=== PATIENT | male | born 1950 | race African-American/Black ===

== ENCOUNTER 2018-08-01 19:16 | Inpatient (IN) | payer MEDICARE, MEDICAID ==
[2018-08-01 19:39] VITALS: BMI 38.7
[2018-08-01] MEDS ORDERED: Acetaminophen 650 MG Suppository PR PRN (20:12)
[2018-08-01] MEDS ORDERED: Ondansetron ODT 4 MG TAB PO PRN (20:12)
[2018-08-01] MEDS ORDERED: Ondansetron PF 4 MG/2 ML Vial IVP PRN (20:12)
[2018-08-01] MEDS ORDERED: Guaifenesin DM 100-10/5 ML UDCUP PO PRN (20:12)
[2018-08-01] MEDS ORDERED: Senokot S 8.6-50 MG TAB PO PRN (20:12)
[2018-08-01] MEDS ORDERED: Dextrose 50% Abboject 50 ML SYRINGE SLOW IVP PRN (20:16)
[2018-08-01] MEDS ORDERED: Dextrose 5% in Water 1,000 ML IV PRN (20:16)
[2018-08-01] MEDS ORDERED: HumaLOG 300 UNITS/3 ML VIAL SC PRN (20:16)
[2018-08-01] MEDS ORDERED: Diltiazem 125 MG in Sodium Chloride 0.9% 100 ML IVPB SCH (20:30)
[2018-08-01] MEDS ORDERED: Enoxaparin Sodium 100 MG/ML SYRINGE SC SCH (21:00)
[2018-08-01 21:14] LABS: CKMB 3.5 ng/mL (0-6.6)
[2018-08-01] MEDS: Insulin Glargine 60 UNITS in Pre-Filled Syringe 1 EACH SC SCH (21:24)
[2018-08-01] MEDS: Famotidine 20 MG TAB PO SCH (21:25)
[2018-08-01] MEDS: Atorvastatin Calcium 40 MG TAB PO SCH (21:25)
[2018-08-01] MEDS: Gabapentin 300 MG CAP PO SCH (21:25)
[2018-08-01] MEDS: Acetaminophen 325 MG TAB PO PRN (21:25)
[2018-08-01] MEDS ORDERED: hydrALAZINE 20 MG/ML VIAL SLOW IVP SCH (23:30)
[2018-08-01] MEDS ORDERED: Ketorolac Tromethamine 30 MG/ML VIAL IVP SCH (23:30)
[2018-08-01] MEDS: hydrALAZINE 20 MG/ML VIAL SLOW IVP PRN (23:56)
--- NOTE | 2018-08-02 02:08 | HP ---
PRIMARY CARE PHYSICIAN: At [place]. CHIEF COMPLAINT: Palpitations and shortness of breath. HISTORY OF PRESENT ILLNESS: This is a 67-year-old male who lives in [place], has a history of congestive heart failure and he had paroxysmal atrial fibrillation over the last year. Most recently, went into atrial fibrillation after when he had a colonoscopy done in March of last year and was in the hospital for several days, discharged on Coumadin, but stopped that because it made him feel sick. No blood thinner since then, He is not on any sort of antiarrhythmics. He came to [facility] to visit his ex- and his daughters and he was eating a large hamburger and suddenly felt palpitations and shortness of breath. He denied any chest pain. He does think he may have had an increase in his fluid retention over the last few days as well. The patient went to the [facility] Room. There, he was found to be hypoxic, 86% on room air, and to be in atrial fibrillation with rapid ventricular rate. The patient was given nebs and Lasix. Also his brain natriuretic peptide was elevated and then he was transferred here. He is breathing much better now and saturating well on room air. He apparently had some wheezing, but that has now resolved. PAST MEDICAL HISTORY: 1. Congestive heart failure for the last 10 years, unknown type. 2. Previous heart attack and coronary artery disease. No history of stents or bypass surgery. 3. Diabetes mellitus type 2, insulin dependent, complicated by peripheral neuropathy. 4. Hyperlipidemia. 5. Hypertension. 6. Multiple previous strokes and TIAs without any residual deficits. PAST SURGICAL HISTORY: None. SOCIAL HISTORY: The patient smokes a pack per day for the last 44 years. He drinks half a pint of vodka, he states about 3 days per week and one of his daughters thought it was more than that. No illicit drugs. FAMILY HISTORY: Multiple family members with hypertension, diabetes, heart problems, and strokes. ALLERGIES: NO KNOWN DRUG ALLERGIES, THOUGH COUMADIN MAKES HIM FEEL SICK. CURRENT MEDICATIONS: 1. Amlodipine 10 mg daily. 2. Atorvastatin 40 mg daily. 3. Carvedilol 25 mg twice daily. 4. Cetirizine 5 mg daily. 5. Clopidogrel 75 mg daily. 6. Nexium 40 mg daily. 7. Gabapentin 600 mg twice daily. 8. Meclizine as needed. 9. Metformin 500 mg twice daily. 10. Naproxen as needed. 11. Possibly Lasix, he is uncertain, if it is 40 mg or 20 mg daily, though it was not on his home medicine list that he gave to the emergency room. REVIEW OF SYSTEMS: CONSTITUTIONAL: No fevers, no chills. EYES: No double vision or blurred vision. ENT: He has had a little bit of runny nose. No sore throat. CARDIOVASCULAR: See HPI. No chest pain. PULMONARY: See HPI. No previous coughing or congestion. No chest tightness or wheezing currently. GASTROINTESTINAL: No abdominal pain. He gets nauseated occasionally, but none today. No vomiting, no diarrhea or constipation. GENITOURINARY: No dysuria or hematuria. MUSCULOSKELETAL: The patient has chronic low back pain with pains down into his legs. He is supposed to be getting an MRI to work up his low back issues. SKIN: He has a rash on his lower part of the abdomen that came from pressure. It was given while he was getting his colonoscopy and he had a lot of bruising there apparently. Initially it has only recently started to heal up well. NEUROLOGIC: The patient has bilateral tingling in feet and lower legs from his peripheral neuropathy. No other numbness, tingling, or focal weakness. PHYSICAL EXAMINATION: VITAL SIGNS: Still pending since his arrival to the hospital here at the outside emergency room. He was noted to have elevated blood pressure. Most recent one was 210/103, respirations 16, O2 saturation was 98% on O2 there and his pulse rate was in the low 100 to 120s. It eventually went into the 90s when he converted back to normal sinus rhythm. He did keep bumping back between normal sinus rhythm and atrial fibrillation with RVR while he was in the hospital there. When he got here, he was put on the monitor and was apparently in sinus rhythm initially, but then he went into atrial flutter with rapid ventricular rate into the 120s here. PHYSICAL EXAMINATION: GENERAL: This is a well-developed, obese, male in no acute distress. HEENT: Pupils equal, round, and reactive to light. Oropharynx clear without lesions, erythema, or exudate. NECK: Supple. No lymphadenopathy. No thyroid nodules or enlargement. No JVD. HEART: Irregularly irregular rhythm in the low 100s on my exam. Now it is fluctuating quite a lot. No murmurs. LUNGS: Clear to auscultation bilaterally. No wheezes, crackles, or rhonchi. ABDOMEN: Soft, obese, nontender to palpation. Normoactive bowel sounds. No hepatosplenomegaly or other masses. EXTREMITIES: The patient has 1+ pitting edema in bilateral lower extremities. He states this is chronic. No clubbing or cyanosis. SKIN: The patient has a darkened desquamated area on the inferior edge of his pannus that he says is a healing rash from his colonoscopy. No other skin lesions noted. NEUROLOGIC: Intact strength and sensation in all extremities. No facial droop. PSYCHIATRIC: Alert, oriented x3. Normal mood and affect. LABORATORY DATA: From the emergency room shows brain natriuretic peptide in the 400s. White blood cell count 9.6, hemoglobin 13.9, hematocrit 41.5, platelet count 78. Cardiac profile with negative troponin, brain natriuretic peptide elevated at 471. PT/INR normal. D-dimer minimally elevated. Complete metabolic panel notable for a sodium of 147, glucose of 256, creatinine of 1.4. The rest was normal. EKG from the [facility] did show initial atrial fibrillation with RVR in the 120s to 130s that converted to sinus rhythm without any severe ST changes. ASSESSMENT: 1. Paroxysmal atrial fibrillation, going in and out of atrial fibrillation, symptomatic, currently in atrial fibrillation. We will give patient a diltiazem bolus and then start him on a diltiazem drip. We will monitor him on telemetry monitoring. We will get Cardiology to see him in the morning. 2. Congestive heart failure exacerbation. We will start the patient on Lasix 40 mg IV twice daily. 3. Renal failure, uncertain if it is acute or chronic. We will monitor creatinine closely with institution of Lasix. 4. Acute hypoxic respiratory failure, now resolved after a nebulizer at the outside emergency room. We will monitor closely and give oxygen as needed and give nebulizers as needed as well. 5. Hypertension. We will resume patient's home blood pressure medications. 6. Hyperlipidemia. We will resume patient's statin. 7. Diabetes mellitus type 2, insulin dependent. We will resume patient's Lantus and put him on a controlled carbohydrate diet and an insulin sliding scale. 8. Gastrointestinal prophylaxis. We will put patient on Pepcid twice daily. 9. Deep venous thrombosis prophylaxis. We will put the patient on Lovenox and sequential compression devices while in bed. CODE STATUS: I did discuss this with the patient. He is a full code. Should he be incapacitated, he states that his daughter would be his medical decision maker, her name is Stephenie Herrera. Job ID: [id number]
[2018-08-02] MEDS: hydrALAZINE 20 MG/ML VIAL SLOW IVP PRN (04:11)
[2018-08-02 05:42] LABS: Anion Gap 15 mmol/L (10-20); BUN (Urea Nitrogen) 20 mg/dL (8.4-25.7); Calc. Creatinine Clearance 58 mL/min (70-130); Calcium 9.1 mg/dL (7.8-10.44); Carbon Dioxide 23 mmol/L (23-31); Chloride 108 mmol/L (98-107); Estimated GFR-MDRD 46; Glucose 228 mg/dL (80-115); Potassium 3.9 mmol/L (3.5-5.1); Sodium 142 mmol/L (136-145)
[2018-08-02 05:44] LABS: #Eosinphils 0.2 thou/uL (0.0-0.7); #Lymphocytes 1.2 thou/uL (1.20-3.40); #Monocytes 0.6 thou/uL (0.11-0.59); %Basophils 0.8 % (0.0-1.0); %Eosinophils 2.8 % (0.0-10.0); %Lymphocytes 20.5 % (21.0-51.0); %Monocytes 10.4 % (0.0-10.0); %Neutrophils 65.5 % (42.0-75.0); Hemoglobin 12.2 g/dL (14.0-18.0); Mean Corpuscular HGB CONC 32.6 g/dL (32.0-36.0); Mean Corpuscular Hemoglobin 26.8 pg (27.0-31.0); Mean Corpuscular Volume 82.3 fL (78.0-98.0); Mean Platelet Volume 11.2 fL (7.4-10.4); Platelet Count 71 thou/uL (130-400); RBC Distribution Width 16.8 % (11.5-14.5); Red Blood Cell (RBC) Count 4.55 mill/uL (4.70-6.10); White Blood Cell (WBC) Count 6.1 thou/uL (4.8-10.8)
[2018-08-02 05:45] LABS: MDiff Complete? YES; Platelet Morphology Comment Appears Decreased
[2018-08-02] MEDS: Furosemide 40 MG/4 ML VIAL SLOW IVP SCH ×2 (06:11→13:47)
[2018-08-02 07:30] LABS: Hemoglobin A1c 6.8 % (4.0-6.0)
[2018-08-02 07:42] LABS: ALT (SGPT) 14 U/L (8-55); AST (SGOT) 24 U/L (5-34); Albumin 3.2 g/dL (3.4-4.8); Alkaline Phosphatase 50 U/L (40-150); Bilirubin, Direct 0.1 mg/dL (0.1-0.3); Bilirubin, Total 0.4 mg/dL (0.2-1.2); Magnesium 1.9 mg/dL (1.6-2.6); Protein, Total 6.5 g/dL (5.8-8.1); Uric Acid 6.1 mg/dL (3.5-7.2)
[2018-08-02] MEDS: Carvedilol 25 MG TAB PO SCH ×2 (07:43→16:35)
[2018-08-02 08:03] LABS: CKMB 2.9 ng/mL (0-6.6)
[2018-08-02] MEDS ORDERED: Enoxaparin Sodium 40 MG/0.4 ML SYRINGE SC SCH (09:00)
[2018-08-02] MEDS ORDERED: Apixaban 5 MG TAB PO SCH (09:00)
--- NOTE | 2018-08-02 09:24 | CON ---
DATE OF CONSULTATION: 08/02/2018 REASON FOR CONSULTATION: Heart failure and atrial fibrillation. HISTORY OF PRESENT ILLNESS: Mr. Herrera is a pleasant 67-year-old gentleman, who comes to the hospital for shortness of breath. He was having hamburger and felt sudden onset of shortness of breath. He was taken to a local ER. He was found to be hypoxic with oxygen level of 86%. So, he was transferred over here for further evaluation. He was also found to be in AFib with RVR. He does have a history of heart failure, apparently he had a heart attack about 10 years ago. However, when I asked him if they ever did a heart catheterization, he tells me that they did at that time and they did not find any blocked arteries. He did not need any stents. He did not need any bypasses. He has been battling with paroxysmal atrial fibrillation for many years. He has had several TIAs. He has been on Coumadin in the past as well, but did not react well to it, had side effects, had to be taken off, and has only been on Plavix. Currently, he is feeling much better, he has been diuresed, he was started on diltiazem drip, but still having some trouble with rate control. PAST MEDICAL HISTORY: 1. History of episodes of congestive heart failure, unknown if it is diastolic or systolic. 2. History of myocardial infarctions. However, it sounds to me like where he has nonischemic cardiomyopathy or may be just hypertensive cardiomyopathy. This is still awaiting echo results. 3. Type 2 diabetes. 4. Hyperlipidemia. 5. Hypertension. 6. Multiple strokes and TIAs in the past. PAST SURGICAL HISTORY: Left heart cath in the past as well. SOCIAL HISTORY: Smokes a pack a day for 44 years. Drinks a pint of vodka 3 days per week, according to his daughters, it is more than that. No drug use. FAMILY HISTORY: Multiple family members with early coronary artery disease. ALLERGIES: 1. NO KNOWN DRUG ALLERGIES. 2. COUMADIN MADE HIM FEEL SICK. OUTPATIENT MEDICATIONS: Include: 1. Amlodipine 10 mg a day. 2. Atorvastatin 40 mg a day. 3. Carvedilol 25 mg twice a day. 4. Cetirizine. 5. Clopidogrel 75 mg a day. 6. Nexium 40 mg a day. 7. Gabapentin 600 mg twice a day. 8. Meclizine. 9. Metformin 500 mg twice a day. 10. Naproxen p.r.n. 11. Lasix. REVIEW OF SYSTEMS: A 12-point review of systems was done and was found to be negative unless stated in the history of present illness. PHYSICAL EXAMINATION: VITAL SIGNS: Temperature 98.4, pulse 91, respiratory rate 16, saturating 98% on 2 L, blood pressure has been in the 200s/100 range, down to 185/98. GENERAL: Awake, alert, and oriented x3. In no distress. HEENT: Normocephalic atraumatic. NECK: Supple. LUNGS: Clear. CARDIOVASCULAR: S1 and S2. No S3, S4. Irregularly irregular heart rate in the 90s to 100s. ABDOMEN: Soft. Positive bowel sounds. EXTREMITIES: 1+ edema. SKIN: Warm and dry. LABORATORY DATA: Laboratory work was reviewed. White count of 6, hemoglobin of 12, hematocrit of 37, and platelet count of 71. Chemistry with a creatinine of 1.8, GFR of 46, glucose of 228. Hemoglobin A1c is 6.8. BNP was 486. Albumin of 3.2. TSH was normal. Troponin was 0.06 and 0.08. ASSESSMENT AND PLAN: 1. Acute on chronic decompensated heart failure, unclear if this is systolic or diastolic. 2. Hypertension, malignant. 3. Most likely flash pulmonary edema from diastolic dysfunction. 4. Atrial fibrillation with rapid ventricular response. 5. History of transient ischemic attack, strokes, with CHADS-VASc score of 5. PLAN: 1. We will increase his diltiazem drip to try to rate control him a little bit better. He has been going in and out of sinus, actually at the beginning of this dictation, he was in atrial fibrillation in the 110s. At this point, he is back in sinus in the 80s. 2. We will start him on full anticoagulation. He is already on Lovenox subcu b.i.d. We will start him on Eliquis 5 mg b.i.d. We will see if his insurance is able to afford this. 3. Echocardiogram pending. 4. We will try to get his blood pressure better controlled. We will restart all of his medications. I will switch his amlodipine to diltiazem 120 mg a day and up titrate as blood pressure and heart rate allow. Thank you for letting me to participate in the care of your patient. We will follow. Further recommendations per results of echo. Job ID: [id number]
[2018-08-02 09:30] LABS: Bilirubin Negative (Negative); Blood, Urine Trace (Negative); Clarity CLEAR (Clear); Glucose, Urine (Dipstick) 100 mg/dL (Negative); Leukocyte Negative (Negative); Nitrite Negative (Negative); Protein, Urine (Dipstick) 100 mg/dL (Neg-Trace); Specific Gravity, Urine 1.006 (1.002-1.036); Urobilinogen 0.2 mg/dL (0.2-1.0); pH, Urine 7.5 (5.0-9.0)
[2018-08-02 09:33] LABS: Bacteria/HPF None Seen HPF (None Seen); Hyaline Casts/LPF 0-3 HYALINE CAST LPF (0-3 Hyaline); RBC/HPF 0-3 HPF (0-3); Squamous Epithelial None Seen HPF (0-3); WBC/HPF None Seen HPF (0-3)
[2018-08-02 09:40] LABS: Amphetamine Not Detected (NotDetected); Barbiturates Screen Not Detected (NotDetected); Benzodiazepine Screen Not Detected (NotDetected); Cocaine Metabolite Screen Not Detected (NotDetected); Medtox Control Line Valid? VALID (VALID); Medtox Reader # READER 1; Methadone Not Detected (NotDetected); Methamphetamine Not Detected (NotDetected); Opiate Screen Not Detected (NotDetected); Oxycodone Screen Not Detected (NotDetected); Phencyclidine (PCP) Not Detected (NotDetected); THC/Cannabinoid Screen Not Detected (NotDetected); Tricyclic Screen Not Detected (NotDetected)
[2018-08-02] MEDS: Gabapentin 300 MG CAP PO SCH ×2 (09:47→20:44)
[2018-08-02] MEDS: Clopidogrel Bisulfate 75 MG TAB PO SCH (09:48)
[2018-08-02] MEDS: Famotidine 20 MG TAB PO SCH ×2 (09:51→20:45)
--- NOTE | 2018-08-02 10:00 | PDOC.PN ---
- Subjective Encounter Start Date: 08/02/18 Encounter Start Time: 07:00 Patient seen and examined. No new complaints. No overnight events - Objective Resuscitation Status - Order Detail: 08/01/18 20:12 Resuscitation Status Routine Resuscitation Status: FULL: Full Resuscitation Discussed with: Patient KRUPA Reviewed: Yes Vital Signs & Weight: Vital Signs (12 hours) Temp Pulse Resp BP BP BP Pulse Ox 08/02/18 09:45 89 161/89 H 08/02/18 08:00 98 08/02/18 07:13 98.4 F 91 16 185/98 H 209/115 H 98 08/02/18 06:10 80 175/88 H 08/02/18 04:11 79 205/101 H 08/02/18 04:02 97.7 F 79 18 205/101 H 97 08/01/18 23:56 78 204/96 H 08/01/18 23:54 78 204/96 H 08/01/18 23:24 97.7 F 73 18 204/88 H 97 Weight Weight 225 lb 12.8 oz I&O: 08/01/18 08/02/18 08/03/18 06:59 06:59 06:59 Intake Total 260 Output Total 625 Balance -365 Result Diagrams: 08/02/18 04:57 08/02/18 04:57 Additional Labs: Accuchecks 08/01/18 20:40 POC Glucose 317 H Radiology Reviewed by me: Yes (chest xray reviewed) EKG Reviewed by me: Yes (nsr) Phys Exam - Physical Examination Constitutional: NAD HEENT: PERRLA, moist MMs, sclera anicteric Neck: no JVD, supple Respiratory: no wheezing, no rales, no rhonchi Cardiovascular: RRR, no significant murmur, no rub Gastrointestinal: soft, non-tender, no distention, positive bowel sounds Musculoskeletal: pulses present, edema present Neurological: non-focal, normal sensation, moves all 4 limbs Lymphatic: no nodes Psychiatric: normal affect, A&O x 3 Skin: no rash, normal turgor Dx/Plan (1) Acute on chronic diastolic ACC/AHA stage C congestive heart failure Code(s): I50.33 - ACUTE ON CHRONIC DIASTOLIC (CONGESTIVE) HEART FAILURE Status : Acute (2) Acute kidney failure Status: Acute (3) Hypertensive urgency Code(s): I16.0 - HYPERTENSIVE URGENCY Status: Acute (4) PAF (paroxysmal atrial fibrillation) Code(s): I48.0 - PAROXYSMAL ATRIAL FIBRILLATION Status: Acute (5) Thrombocytopenia Code(s): D69.6 - THROMBOCYTOPENIA, UNSPECIFIED Status: Acute (6) Diabetes type 2, controlled Code(s): E11.9 - TYPE 2 DIABETES MELLITUS WITHOUT COMPLICATIONS Status: Chronic (7) Dyslipidemia Code(s): E78.5 - HYPERLIPIDEMIA, UNSPECIFIED Status: Chronic (8) GERD (gastroesophageal reflux disease) Code(s): K21.9 - GASTRO-ESOPHAGEAL REFLUX DISEASE WITHOUT ESOPHAGITIS Status: Chronic (9) Hypertension Code(s): I10 - ESSENTIAL (PRIMARY) HYPERTENSION Status: Chronic (10) Obesity (BMI 30-39.9) Code(s): E66.9 - OBESITY, UNSPECIFIED Status: Chronic (11) Tinea corporis Code(s): B35.4 - TINEA CORPORIS Status: Acute - Plan cont current plan of care, plan discussed w/ family * continue diuresis * will need medication adjustment * echo pending * discussed with family bedside * will monitor * pt is improving. * will add clotrimazole cream and add diflucan 100 mg po daily * check bnp, cardiac enzyme, LFT, uric acid, UA, UDS Review of Systems - Review of Systems ENT: negative: Ear Pain, Ear Discharge, Nose Pain, Nose Discharge, Nose Congestion, Mouth Pain, Mouth Swelling, Throat Pain, Throat Swelling, Other Respiratory: negative: Cough, Dry, Shortness of Breath, Hemoptysis, SOB with Excertion, Pleuritic Pain, Sputum, Wheezing Cardiovascular: edema. negative: chest pain, palpitations, orthopnea, paroxysmal nocturnal dyspnea, light headedness, other Gastrointestinal: negative: Nausea, Vomiting, Abdominal Pain, Diarrhea, Constipation, Melena, Hematochezia, Other Genitourinary: negative: Dysuria, Frequency, Incontinence, Hematuria, Retention , Other Musculoskeletal: negative: Neck Pain, Shoulder Pain, Arm Pain, Back Pain, Hand Pain, Leg Pain, Foot Pain, Other Skin: negative: Rash, Lesions, Mauricio, Bruising, Other - Medications/Allergies Allergies/Adverse Reactions: Allergies Allergy/AdvReac Type Severity Reaction Status Date / Time No Known Allergies Allergy Unverified 08/01/18 19:49 Medications: Current Medications Acetaminophen (Tylenol) 650 mg PO Q4H PRN PRN Reason: Headache/Fever/Mild Pain (1-3) Last Admin: 08/01/18 21:25 Dose: 650 mg Apixaban (Eliquis) 5 mg PO BID [facility] Last Admin: 08/02/18 09:47 Dose: 5 mg Atorvastatin Calcium (Lipitor) 40 mg PO HS [facility] Last Admin: 08/01/18 21:25 Dose: 40 mg Carvedilol (Coreg) 25 mg PO BID-[facility] Last Admin: 08/02/18 07:43 Dose: 25 mg Clopidogrel Bisulfate (Plavix) 75 mg PO DAILY [facility] Last Admin: 08/02/18 09:48 Dose: 75 mg Dextrose/Water (Dextrose 50%) 25 gm SLOW IVP PRN PRN PRN Reason: Hypoglycemia Diltiazem HCl (Cardizem Cd) 120 mg PO DAILY [facility] Last Admin: 08/02/18 09:45 Dose: 120 mg Famotidine (Pepcid) 20 mg PO BID [facility] Last Admin: 08/02/18 09:51 Dose: 20 mg Furosemide (Lasix) 40 mg SLOW IVP 0600,1400 [facility] Last Admin: 08/02/18 06:11 Dose: 40 mg Gabapentin (Neurontin) 600 mg PO BID [facility] Last Admin: 08/02/18 09:47 Dose: 600 mg Glucagon (Glucagon) 1 mg IM PRN PRN PRN Reason: Hypoglycemia Guaifenesin/Dextromethorphan (Robitussin Dm) 15 ml PO Q4H PRN PRN Reason: Cough Hydralazine HCl (Apresoline) 10 mg SLOW IVP Q4H PRN PRN Reason: SBP > 180 Last Admin: 08/02/18 04:11 Dose: 10 mg Dextrose/Water (D5w) 1,000 mls @ 0 mls/hr IV .Q0M PRN PRN Reason: Hypoglycemia Diltiazem HCl 125 mg/ Sodium (Chloride) 125 mls @ 5 mls/hr IVPB INF [facility]; Protocol Insulin Glargine 60 units/ (Miscellaneous Medication) 0.6 mls @ 0 mls/hr SC HS [facility] Last Admin: 08/01/18 21:24 Dose: 0.6 mls Insulin Human Lispro (Humalog) 0 units SC .MODERATE SLIDING SC PRN PRN Reason: Moderate Correctional Scale Insulin Human Lispro (Humalog) 0 units SC .BEDTIME SLIDING SC PRN PRN Reason: Bedtime Correctional Scale Ondansetron HCl (Zofran Odt) 4 mg PO Q6H PRN PRN Reason: Nausea/Vomiting Ondansetron HCl (Zofran) 4 mg IVP Q6H PRN PRN Reason: Nausea/Vomiting Senna/Docusate Sodium (Senokot S) 2 tab PO BID PRN PRN Reason: Constipation Sodium Chloride (Flush - Normal Saline) 10 ml IVF Q12HR PAULINE Last Admin: 08/02/18 09:45 Dose: 10 ml Sodium Chloride (Flush - Normal Saline) 10 ml IVF PRN PRN PRN Reason: Saline Flush Last Admin: 08/02/18 06:11 Dose: 10 ml
[2018-08-02] MEDS ORDERED: Fluconazole 100 MG TAB PO SCH (10:15)
[2018-08-02] MEDS: Acetaminophen 325 MG TAB PO PRN ×2 (10:52→20:46)
[2018-08-02] MEDS: HumaLOG 300 UNITS/3 ML VIAL SC PRN ×2 (11:53→17:24)
[2018-08-02] MEDS: Lidocaine 5% Patch TD SCH (20:44)
[2018-08-02] MEDS: Atorvastatin Calcium 40 MG TAB PO SCH (20:45)
[2018-08-02] MEDS: Clotrimazole 1 % Cream 30 GM TUBE TOP SCH (20:46)
[2018-08-02] MEDS: Insulin Glargine 60 UNITS in Pre-Filled Syringe 1 EACH SC SCH (20:47)
[2018-08-03] MEDS: Furosemide 40 MG/4 ML VIAL SLOW IVP SCH ×2 (05:40→13:38)
[2018-08-03] MEDS: Acetaminophen 325 MG TAB PO PRN (05:46)
[2018-08-03] MEDS: Lidocaine Patch Removal TOP SCH (08:15)
[2018-08-03] MEDS: Carvedilol 25 MG TAB PO SCH ×2 (09:06→17:35)
[2018-08-03] MEDS: Fluconazole 100 MG TAB PO SCH (09:06)
[2018-08-03] MEDS: Clopidogrel Bisulfate 75 MG TAB PO SCH (09:07)
[2018-08-03] MEDS: Gabapentin 300 MG CAP PO SCH ×2 (09:07→21:35)
[2018-08-03] MEDS: Famotidine 20 MG TAB PO SCH ×2 (09:07→21:36)
[2018-08-03] MEDS: Clotrimazole 1 % Cream 30 GM TUBE TOP SCH ×2 (09:08→21:38)
--- NOTE | 2018-08-03 10:07 | PDOC.PN ---
- Subjective Encounter Start Date: 08/03/18 Encounter Start Time: 08:50 Patient seen and examined. No new complaints. No overnight events pt is doing well, he has chronic pain in back and is not well controlled, his edema is improving - Objective Resuscitation Status - Order Detail: 08/01/18 20:12 Resuscitation Status Routine Resuscitation Status: FULL: Full Resuscitation Discussed with: Patient KRUPA Reviewed: Yes Vital Signs & Weight: Vital Signs (12 hours) Temp Pulse Resp BP BP BP Pulse Ox 08/03/18 09:06 62 08/03/18 07:25 98 F 62 18 151/71 H 96 08/03/18 04:00 97.8 F 67 15 164/92 H 97 08/02/18 23:02 65 18 165/77 H 96 Weight Weight 226 lb 4.8 oz I&O: 08/02/18 08/03/18 08/04/18 06:59 06:59 06:59 Intake Total 260 1390 Output Total 625 825 Balance -365 565 Result Diagrams: 08/02/18 04:57 08/02/18 04:57 Additional Labs: Accuchecks 08/03/18 08/02/18 08/02/18 05:32 20:19 16:52 POC Glucose 185 H 283 H 236 H 08/02/18 10:58 POC Glucose 302 H Radiology Reviewed by me: Yes (echo noted) EKG Reviewed by me: Yes Phys Exam - Physical Examination Constitutional: NAD HEENT: PERRLA, moist MMs, sclera anicteric Neck: no JVD, supple Respiratory: no wheezing, no rales, no rhonchi Cardiovascular: RRR, no significant murmur, no rub Gastrointestinal: soft, non-tender, no distention, positive bowel sounds obesity+ edema improving Neurological: non-focal, normal sensation, moves all 4 limbs Psychiatric: normal affect, A&O x 3 Skin: no rash, normal turgor Dx/Plan (1) Acute on chronic diastolic ACC/AHA stage C congestive heart failure Code(s): I50.33 - ACUTE ON CHRONIC DIASTOLIC (CONGESTIVE) HEART FAILURE Status : Acute (2) Acute kidney failure Status: Acute (3) Hypertensive urgency Code(s): I16.0 - HYPERTENSIVE URGENCY Status: Acute (4) PAF (paroxysmal atrial fibrillation) Code(s): I48.0 - PAROXYSMAL ATRIAL FIBRILLATION Status: Acute (5) Thrombocytopenia Code(s): D69.6 - THROMBOCYTOPENIA, UNSPECIFIED Status: Acute (6) Diabetes type 2, controlled Code(s): E11.9 - TYPE 2 DIABETES MELLITUS WITHOUT COMPLICATIONS Status: Chronic (7) Dyslipidemia Code(s): E78.5 - HYPERLIPIDEMIA, UNSPECIFIED Status: Chronic (8) GERD (gastroesophageal reflux disease) Code(s): K21.9 - GASTRO-ESOPHAGEAL REFLUX DISEASE WITHOUT ESOPHAGITIS Status: Chronic (9) Hypertension Code(s): I10 - ESSENTIAL (PRIMARY) HYPERTENSION Status: Chronic (10) Obesity (BMI 30-39.9) Code(s): E66.9 - OBESITY, UNSPECIFIED Status: Chronic (11) Tinea corporis Code(s): B35.4 - TINEA CORPORIS Status: Acute (12) Chronic low back pain Code(s): M54.5 - LOW BACK PAIN; G89.29 - OTHER CHRONIC PAIN Status: Chronic - Plan cont current plan of care, plan discussed w/ family * continue elliquis * add norco for pain control * continue lasix * repeat labs tomorrow * discussed with family * expecting discharge tomorrow if stable today * medication reviewed as below * symptomatic treatment. Review of Systems - Review of Systems Eyes: negative: Pain, Vision Change, Conjunctivae Inflammation, Eyelid Inflammation, Redness, Other ENT: negative: Ear Pain, Ear Discharge, Nose Pain, Nose Discharge, Nose Congestion, Mouth Pain, Mouth Swelling, Throat Pain, Throat Swelling, Other Respiratory: negative: Cough, Dry, Shortness of Breath, Hemoptysis, SOB with Excertion, Pleuritic Pain, Sputum, Wheezing Cardiovascular: negative: chest pain, palpitations, orthopnea, paroxysmal nocturnal dyspnea, edema, light headedness, other Gastrointestinal: negative: Nausea, Vomiting, Abdominal Pain, Diarrhea, Constipation, Melena, Hematochezia, Other Genitourinary: negative: Dysuria, Frequency, Incontinence, Hematuria, Retention , Other Musculoskeletal: Back Pain. negative: Neck Pain, Shoulder Pain, Arm Pain, Hand Pain, Leg Pain, Foot Pain, Other - Medications/Allergies Allergies/Adverse Reactions: Allergies Allergy/AdvReac Type Severity Reaction Status Date / Time No Known Allergies Allergy Unverified 08/01/18 19:49 Medications: Current Medications Acetaminophen (Tylenol) 650 mg PO Q4H PRN PRN Reason: Headache/Fever/Mild Pain (1-3) Last Admin: 08/03/18 05:46 Dose: 650 mg Hydrocodone Bitart/Acetaminophen ([place] 10/325) 1 tab PO Q4H PRN PRN Reason: Pain Apixaban (Eliquis) 5 mg PO BID [facility] Atorvastatin Calcium (Lipitor) 40 mg PO HS [facility] Last Admin: 08/02/18 20:45 Dose: 40 mg Carvedilol (Coreg) 25 mg PO BID[facility] Last Admin: 08/03/18 09:06 Dose: 25 mg Clopidogrel Bisulfate (Plavix) 75 mg PO DAILY [facility] Last Admin: 08/03/18 09:07 Dose: 75 mg Clotrimazole (Lotrimin 1% Cream) 0 gm TOP BID [facility] Last Admin: 08/03/18 09:08 Dose: 1 applic Dextrose/Water (Dextrose 50%) 25 gm SLOW IVP PRN PRN PRN Reason: Hypoglycemia Diltiazem HCl (Cardizem Cd) 120 mg PO DAILY [facility] Last Admin: 08/03/18 09:06 Dose: 120 mg Famotidine (Pepcid) 20 mg PO BID [facility] Last Admin: 08/03/18 09:07 Dose: 20 mg Fluconazole (Diflucan) 100 mg PO DAILY [facility] Last Admin: 08/03/18 09:06 Dose: 100 mg Furosemide (Lasix) 40 mg SLOW IVP 0600,1400 [facility] Last Admin: 08/03/18 05:40 Dose: 40 mg Gabapentin (Neurontin) 600 mg PO BID [facility] Last Admin: 08/03/18 09:07 Dose: 600 mg Glucagon (Glucagon) 1 mg IM PRN PRN PRN Reason: Hypoglycemia Guaifenesin/Dextromethorphan (Robitussin Dm) 15 ml PO Q4H PRN PRN Reason: Cough Hydralazine HCl (Apresoline) 10 mg SLOW IVP Q4H PRN PRN Reason: SBP > 180 Last Admin: 08/02/18 04:11 Dose: 10 mg Dextrose/Water (D5w) 1,000 mls @ 0 mls/hr IV .Q0M PRN PRN Reason: Hypoglycemia Insulin Glargine 60 units/ (Miscellaneous Medication) 0.6 mls @ 0 mls/hr SC [facility] Last Admin: 08/02/18 20:47 Dose: 0.6 mls Insulin Human Lispro (Humalog) 0 units SC .MODERATE SLIDING SC PRN PRN Reason: Moderate Correctional Scale Last Admin: 08/02/18 17:24 Dose: 4 unit Insulin Human Lispro (Humalog) 0 units SC .BEDTIME SLIDING SC PRN PRN Reason: Bedtime Correctional Scale Lidocaine (Lidoderm 5% Patch) 1 patch TD HS [facility] Last Admin: 08/02/18 20:44 Dose: 1 patch Miscellaneous Medication (Lidocaine Patch Removal) [facility] [place] [facility] [place] Last Admin: 08/03/18 08:15 Dose: 1 each Ondansetron HCl (Zofran Odt) 4 mg PO Q6H PRN PRN Reason: Nausea/Vomiting Ondansetron HCl (Zofran) 4 mg IVP Q6H PRN PRN Reason: Nausea/Vomiting Senna/Docusate Sodium (Senokot S) 2 tab PO BID PRN PRN Reason: Constipation Sodium Chloride (Flush - Normal Saline) 10 ml IVF Q12HR [facility] Last Admin: 08/03/18 09:10 Dose: 10 ml Sodium Chloride (Flush - Normal Saline) 10 ml IVF PRN PRN PRN Reason: Saline Flush Last Admin: 08/03/18 05:40 Dose: 10 ml
[2018-08-03] MEDS: Apixaban 5 MG TAB PO SCH ×2 (11:55→21:35)
[2018-08-03] MEDS: HumaLOG 300 UNITS/3 ML VIAL SC PRN ×2 (11:56→18:11)
[2018-08-03] MEDS: HYDROcodone/Acetaminophen 10/325 mg Tablet PO PRN ×2 (11:56→21:36)
--- NOTE | 2018-08-03 18:53 | PDOC.CTH ---
Cardiology Progress Note - Subjective He is doing much better., Back to baseline. Off oxygen supplementation. - Objective Vital Signs Temp Pulse Resp BP BP Pulse Ox 08/03/18 15:15 97.6 F 63 20 153/73 H 99 08/03/18 09:06 62 08/03/18 07:25 98 F 62 18 151/71 H 96 Weight 226 lb 4.8 oz 08/02/18 08/03/18 08/04/18 06:59 06:59 06:59 Intake Total 260 1390 Output Total 625 825 Balance -365 565 - Physical Examination General/Neuro: alert & oriented x3, NAD Neck: no JVD present Lungs: CTA, unlabored respirations Heart: RRR Abdomen: NT/ND Extremities: other: (no edema.) - Telemetry Telemetry Rhythm: NSR - Labs Result Diagrams: 08/02/18 04:57 08/02/18 04:57 Troponin/CKMB CK-MB (CK-2) 2.9 ng/mL (0-6.6) 08/02/18 04:55 Troponin I 0.088 ng/mL (< 0.028) H 08/02/18 04:55 - Assessment/Plan 1. Flash pulmonary edema 2. Acute on chronic diastolic heart failure. resolved. 3. HTN 4. Afib RVR, now in sinus. PLAN: - Full anticoagulation with Eliquis for stroke prophylaxis. - Will increase diltiazem to 240 mg daily. - Will switch Lasix to PO PRN for edema. - STOP plavix. 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 - May discharge at any time from cardiac perspective. - He will follow up with [facility] in [place].
[2018-08-03] MEDS: Atorvastatin Calcium 40 MG TAB PO SCH (21:35)
[2018-08-03] MEDS: Lidocaine 5% Patch TD SCH (21:37)
[2018-08-03] MEDS: Insulin Glargine 60 UNITS in Pre-Filled Syringe 1 EACH SC SCH (21:37)
[2018-08-04] MEDS: HYDROcodone/Acetaminophen 10/325 mg Tablet PO PRN ×2 (01:46→09:00)
[2018-08-04] MEDS ORDERED: Furosemide 40 MG TAB PO SCH (07:30)
[2018-08-04] MEDS: Famotidine 20 MG TAB PO SCH (08:57)
[2018-08-04] MEDS: Gabapentin 300 MG CAP PO SCH (08:57)
[2018-08-04] MEDS: Carvedilol 25 MG TAB PO SCH (08:58)
[2018-08-04] MEDS: Apixaban 5 MG TAB PO SCH (08:59)
[2018-08-04] MEDS: Fluconazole 100 MG TAB PO SCH (08:59)
[2018-08-04] MEDS: Lidocaine Patch Removal TOP SCH (09:00)
[2018-08-04] MEDS: Clotrimazole 1 % Cream 30 GM TUBE TOP SCH (09:01)
--- NOTE | 2018-08-04 09:26 | DIS ---
DATE OF ADMISSION: 08/01/2018 DATE OF DISCHARGE: 08/04/2018 PRIMARY CARE PHYSICIAN: [facility] call admission. DISCHARGE DISPOSITION: Home. PRIMARY DISCHARGE DIAGNOSES: 1. Acute on chronic diastolic congestive heart failure exacerbation. 2. Hypertensive urgency. 3. Paroxysmal atrial fibrillation. 4. Tinea corporis. 5. Acute kidney injury on top of chronic kidney disease, stage 3. SECONDARY DISCHARGE DIAGNOSES: 1. Chronic kidney disease, stage 3. 2. Chronic low back pain. 3. Chronic thrombocytopenia. 4. Obesity with BMI 39. 5. Hypertension. 6. Gastroesophageal reflux disease. 7. Dyslipidemia. 8. Diabetes, type 2. PRIMARY PROCEDURE/OPERATION: None. RADIOLOGICAL INVESTIGATION: Echocardiography showed diastolic dysfunction, LVH. SIGNIFICANT LABORATORY DATA: WBC 6.1, hemoglobin 12.2, and platelets 71. Sodium 142, potassium 3.9, BUN 20, creatinine 1.80, calcium 9.1. Hemoglobin A1c 6.8. Troponin 0.088. BNP 486. TSH 1.32. Urine drug screen, negative. DISCHARGE MEDICATIONS: 1. Lipitor 40 mg p.o. at bedtime. 2. Coreg 25 mg p.o. b.i.d. 3. Nexium 40 mg daily. 4. Gabapentin 600 mg p.o. b.i.d. 5. Antivert 25 mg q.6 hourly p.r.n. 6. Metformin 500 mg p.o. b.i.d. 7. Eliquis 5 mg p.o. b.i.d. 8. Cardizem CD 240 mg p.o. daily. 9. Diflucan 100 mg p.o. daily for 5 days. 10. Lasix 40 mg p.o. daily. 11. Lantus 60 units subcu at bedtime. 12. Lotrimin 1% topical application b.i.d. CONTRAINDICATION: None. CODE STATUS: Full code. INPATIENT STONE DRILLER HELPER: Dr. Norris Munoz, postal transportation clerk was following while in hospital. TEST RESULTS PENDING ON DISCHARGE: None. ALLERGIES: NO KNOWN DRUG ALLERGY. DISCHARGE PLAN: Posthospital, the patient will follow up with primary postal transportation clerk as well as primary care physician in 1 week. HOSPITAL COURSE: A 67-year-old male with above-mentioned medical problem, who was admitted by Dr. Charli Hensley, please see his H and P for further details. On admission, the patient was having atrial fibrillation with RVR. He was having increasing dyspnea, increasing lower extremity edema. He had elevated BNP, elevated troponin, and elevated creatinine on admission. The patient was admitted to telemetry floor and he was treated with Cardizem p.o. His rate was under control. He required Lasix for congestive heart failure exacerbation. We started Eliquis for his long-term chronic anticoagulation therapy. His rate remained controlled while in hospital on Cardizem CD. We discontinued amlodipine, which he was taking before. We also increase Lasix to 40 mg p.o. daily. Rest of medication was continued as per previous. Dietary education, fluid restriction discussed with the patient. Heart failure education given. The patient is seen and examined at bedside today. Echocardiography did not show any acute process other than chronic diastolic dysfunction and LVH. REVIEW OF SYSTEMS: All review of systems reviewed with him and negative. PHYSICAL EXAMINATION: VITAL SIGNS: Currently, temperature 97.6, pulse 65, respiratory rate 20, saturations 94% on room air, blood pressure 136/63. Weight 227 pounds. GENERAL: The patient is currently alert and awake. No obvious acute distress. HEENT: Head, normocephalic and atraumatic. Eyes, pupils are round and reactive to light. Extraocular muscle intact. ENT, oropharynx within normal limits. Moist mucous membranes. No oral lesion. No pharyngeal erythema. No exudate. NECK: Supple. No JVD. No thyromegaly. No carotid bruit. No jugular venous distention. LUNGS: Clear to auscultation without any rhonchi or rales. CARDIAC: S1 and S2, regular without any murmur. ABDOMEN: Soft and benign without any tenderness. EXTREMITIES: No edema. NEUROLOGIC: Nonfocal examination. The patient is medically stable for discharge today. Job ID: [id number]
[2018-08-04 11:57] VITALS: BP 124/71; TEMP 97.4
[2018-08-04] MEDS: HumaLOG 300 UNITS/3 ML VIAL SC PRN (12:04)
== END 2018-08-04 13:05 | disposition home or self-care (01) | DRG 291 ==
LOC: 2SW 19:16 → 2NO 08-02 12:39
PROVIDERS: ADMIT Emergency Medicine; ATTEND Emergency Medicine
DX: I13.0 Hypertensive heart and chronic kidney disease with heart failure and stage 1 through stage 4 chronic kidney disease, or unspecified chronic kidney disease (principal); I50.33 Acute on chronic diastolic (congestive) heart failure; N17.9 Acute kidney failure, unspecified; I16.0 Hypertensive urgency; I48.0 Paroxysmal atrial fibrillation; B35.4 Tinea corporis; N18.3 Chronic kidney disease, stage 3 (moderate); G89.29 Other chronic pain; D69.6 Thrombocytopenia, unspecified; E66.9 Obesity, unspecified; M54.2 Cervicalgia; Z68.39 Body mass index [BMI] 39.0-39.9, adult; K21.9 Gastro-esophageal reflux disease without esophagitis; F17.210 Nicotine dependence, cigarettes, uncomplicated; E78.5 Hyperlipidemia, unspecified; E11.22 Type 2 diabetes mellitus with diabetic chronic kidney disease; Z86.73 Personal history of transient ischemic attack (TIA), and cerebral infarction without residual deficits; I25.2 Old myocardial infarction; Z79.02 Long term (current) use of antithrombotics/antiplatelets; Z79.4 Long term (current) use of insulin; Z79.899 Other long term (current) drug therapy
CPT/HCPCS: 36415; 36416; 80048; 80076; 80306; 81003; 81015; 82553; 83036; 83735; 83880; 84443; 84484; 84550; 85025; 93005; 93010; 93306; 93798; J0360; J1650; J1825; J1885; J1940